=== PATIENT | male | born 1945 | race Caucasian/White ===

== ENCOUNTER 2024-06-22 08:54 | Day surgery (SDC) | payer MEDICARE, OTHER, SELFPAY ==
[2024-06-22] VITALS (12 sets, daily range): BP systolic 138–180; BP diastolic 72–89; PULSE 72–98; RESP 14–18; TEMP 36.4–37.1; O2SAT 84–96; BMI 31.6
--- NOTE | 2024-06-22 09:19 | PCM.PRE.AN2 ---
ASA Classification* ASA Classification ASA Classification: 2 Assessment & Plan Anesthesia* Anesthesia Assessment Anesthesia Assessment: Discussed sedation and/or anesthesia options, risks, benefits, and alternatives with patient/parents/legal guardian/POA. Questions invited. The patient/parents/legal guardian/POA seems to understand and agrees to proceed with anesthesia plan. Reviewed the physical assessment, medical history, allergy history and patient home medications list prior to surgery/procedure/anesthetic and documented any changes. Performed airway and anesthesia risk assessments. Anesthesia Type Anesthesia Type: General Anesthesia Focused Assessment* Airway Assessment Mouth opens: >3 cm Mallampati Score: II Focused Labs Anesthesia Preop lab: CBC CHEMISTRY COAG Pre-Assessment Diagnosis/Proposed Procedure Planned Operative Procedure(s): RHINOPHYMA EXCISION Anesthesia History Anesthesia History - washateria attendant: Anesthesia History - washateria attendant Hx Hospitalization No 06/09/24 13:17 Any Problems With Anesthesia No 06/09/24 13:17 Cholinesterase deficiency No 06/09/24 13:17 You/Your Family Experience No 06/09/24 13:17 fever (hyperthermia) with Relationship Recent Exposure to Contagious Disease Does patient have nerve No 06/09/24 13:17 stimulator Patient instructed to have device shut off --Does patient have Pacemaker or ICD? When Was Last Pacemaker Check QUESTION #4 FULL TEXT: You/Your Family Experience fever (hyperthermia) with Anesthesia Last Oral Intake Last Oral intake: Last Oral Intake NPO since Meds taken in AM with sips of water? Meds patient instructed to take am of surgery PONV PONV - washateria attendant: PONV - washateria attendant Female No 06/09/24 13:17 HX of Motion Sickness No 06/09/24 13:17 HX of N/V After Surgery No 06/09/24 13:17 Non-Smoker Yes 06/09/24 13:17 Duration of Surgery greater Yes 06/09/24 13:17 than 60 minutes Number of Risk Factors 2 06/09/24 13:17 PONV Score Moderate Risk 06/09/24 13:17 Height & Weight Height & Weight: Anesthesia: Height & Weight Height 5 ft 9 in 05/27/24 09:29 Respiratory Assessment Respiratory Assessment - washateria attendant: Respiratory Tract Infection Hx - washateria attendant Hx Respiratory Tract Infection No 06/09/24 13:17 STOP Sleep Apnea STOP Sleep Apnea - washateria attendant: STOP Sleep Apnea - washateria attendant Hx Hypertension Yes: CONTROLLED WITH MED 06/09/24 13:17 Hx Sleep Apnea No 06/09/24 13:17 CPAP BIPAP Do you snore loudly (louder No 06/09/24 13:17 than talking or can be heard Do you often feel tired/ No 06/09/24 13:17 fatigued/ sleepy during daytime? Has anyone observed you stop No 06/09/24 13:17 breathing during sleep? STOP Results Negative 06/09/24 13:17 QUESTION #5 FULL TEXT : Do you snore loudly (louder than talking or can be heard through closed doors)? Tobacco Use History Tobacco Use History - washateria attendant: Tobacco Use History - washateria attendant Tobacco Use Smoking Status Former smoker 06/09/24 13:17 Hx Tobacco Use No 06/09/24 13:17 Years Smoking Packs Smoked per Day Smoking Cessation Date was No - quit smoking greater 06/09/24 13:17 within the last 15 years than 15 years ago Hx Smoking Cessation Date 03/09/84 06/09/24 13:17 Hx Smoking Cessation Counseling Hematologic Medial History Hematologic Hx - washateria attendant: Hematologic Medical Hx - internal grinder set up operator Hx of Blood Transfusion No 06/09/24 13:17 Hx of Transfusion in last 3 No 06/09/24 13:17 Months Date of Last Transfusion (if within last 3 months) Ever experience any problems No 06/09/24 13:17 with transfusion(s)? Specify any problems Hx of Preganancy in last 3 N/A 06/09/24 13:17 Months Nurse Filling Out Transfusion DSCHRIBER 06/09/24 13:17 & Questions: Date: 06/09/24 06/09/24 13:17 Time: 13:19 06/09/24 13:17 Patient unable to answer at this time (ie. confused, unrespo /Reproduction History /Reproductive History - washateria attendant: /Reproductive Hx- washateria attendant Hx Now No 06/09/24 13:17 Gestational Age (in weeks): EDC: Hx Hx Para Hx Section SAB No 06/09/24 13:17 Active Medications Active Medications: Current Medications Generic Name Dose Route Start Last Admin Trade Name Freq PRN Reason Stop Dose Admin Cefazolin Sodium 2 gm/ N/A 20 mls @ 400 mls/hr 06/22/24 14:30 IV 06/22/24 14:32 INTRAOP ONE Sodium Chloride 1,000 mls @ 15 mls/hr 06/22/24 09:05 IV .Q48H ON LICENSE OF [facility] PFSH Medical History Wears hearing aid Wears glasses Cancer PTSD (post-traumatic stress disorder) Depression Alcohol use Insulin dependent diabetes mellitus Arthritis Fatty liver Restless legs Back pain Dietary restriction Gastric reflux Former smoker Leg cramps History of stress test Glaucoma History of deviated nasal septum History of edema Hypertension Foot drop, left foot Skin cancer High cholesterol Home Medications ?Medication ?Instructions ?Recorded ?Last Taken ?Type amlodipine 10 mg tablet 10 mg PO QDAY 05/27/24 06/22/24 History dorzolamide 22.3 mg-timolol 6.8 1 drp ophthalmic (eye) BID 05/27/24 06/22/24 History mg/mL eye drops lisinopril 20 mg tablet 20 mg PO BID 05/27/24 06/21/24 History omeprazole 20 mg capsule,delayed 20 mg PO QDAY 05/27/24 06/22/24 History release semaglutide 0.25 mg or 0.5 mg (2 0.5 mg subcut QWEEK 05/27/24 06/15/24 History mg/3 mL) subcutaneous pen injector sertraline 25 mg tablet 25 mg PO QDAY 05/27/24 06/21/24 History simvastatin 20 mg tablet 20 mg PO QHS 05/27/24 06/21/24 History travoprost 0.004 % eye drops 1 drp ophthalmic (eye) QHS 05/27/24 06/21/24 History aspirin 81 mg tablet,delayed 81 mg PO QHS 06/09/24 06/17/24 History release (Adult Aspirin Regimen) empagliflozin 25 mg tablet 25 mg PO DAILY 06/09/24 06/17/24 History (Jardiance) insulin aspart U-100 100 unit/mL 8 unit subcut BID 06/09/24 06/20/24 History (3 mL) subcutaneous pen (Novolog FlexPen U-100 Insulin aspart) insulin glargine 100 unit/mL (3 50 unit subcut QPM 06/09/24 06/21/24 History mL) subcutaneous pen, sensor 25 unit metformin 1,000 mg tablet 1,000 mg PO BID 06/09/24 06/21/24 History Allergy/AdvReac Type Severity Reaction Status Date / Time No Known Allergies Allergy Verified 06/22/24 09:09 Surgical History Hx of colonoscopy Hx of tonsillectomy History of fusion of lumbar spine Hx of inguinal hernia surgery History of carpal tunnel surgery of left wrist Social History Smoking Status: Former smoker alcohol intake: current Review of Systems (Anesthesia) ROS Narrative System reviewed and no additional complaints, except as documented.
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
[2024-06-22 09:39] LABS: Bedside Glucose 200 mg/dL (74-106)
[2024-06-22] MEDS: Cefazolin 2 GM in Syringe IV (10:15)
--- NOTE | 2024-06-22 10:19 | PCM.OPRPT ---
Operative Report (Standard) Operative Information Date of Procedure: 06/22/24 Pre-Operative Diagnosis: Rhinophyma Post-Operative Diagnosis: Same Surgery/Procedure Performed: 1) Rhinophyma excision (CPT: 50930) lozenge dough mixer: Yes Adzing And Boring Machine Helper: Herminia Ramsey Tasks completed by contract assistant: Retracting Type of Anesthesia: General/Supplemental (10 cc of a 50/50 mixture of 1% lidocaine with 1:200,000 epinephrine and 0.25% Marcaine, and then 5 cc of 0.25% Marcaine only at the completion of the case ) RN Documented Start/Stop Times: Operation Date: 06/22/24 11:00 Case Time Into Pre-Op 06/22/24 09:01 Out of Pre-Op 06/22/24 10:07 Anesthesia Start 06/22/24 10:09 Into Room 06/22/24 10:09 Procedure Start 06/22/24 10:45 Procedure End 06/22/24 11:36 Anesthesia End 06/22/24 11:50 Out of Room 06/22/24 11:50 Into Recovery 06/22/24 11:55 Procedure Start Time: 10:45 Procedure Stop Time: 11:36 Select all DRAINS/GRAFTS/IMPLANTS that apply: None Estimated Blood Loss: 25cc Specimen collected: Yes Description of specimen(s) removed: 1) left ala rhinophyma (rule out basal cell) 2) right ala rhinophyma 3) left nasal sidewall rhinophyma 4) right nasal side wall rhinophyma. Description of surgery: Indications: Tonny Mulligan is a delightful 79-year-old male with a history of hypertension and septoplasty who presents today for rhinophyma excision. He has severe rhinophyma with particular sebaceous hyperplasia on the left ala/nostril. He understands the risks, benefits, and alternatives to excision and is anticipating wound healing/need for wound care postoperative. Procedure details: Patient was correctly identified in preoperative holding and taken back to the operating room where he was administered general anesthesia and prepped and draped in sterile fashion with ophthalmic Betadine. Proper timeout was performed. He was anesthetized with the above-noted local solution for a nasal block. It was given time to take effect. We then began the procedure by taking a 15 blade scalpel and excising the sebaceous hyperplasia (rhinophyma) using the cold technique. The Ellman electrocautery was then used for hemostasis and for fine detail work. The bovie and epinephrine-soaked telphas were also used for hemostasis. There were various specimens that were sent including excision of left ala rhinophyma (rule out basal cell), right ala rhinophyma, left nasal sidewall rhinophyma, and right nasal side wall rhinophyma. The contour of the nose was improved at the completion of the case. Patient tolerated well. He was dressed with bacitracin, adaptic, and taken to the pacu in stable condition. Surgical Findings: Bleeding glandular tissue/skin at the base of the excision, no exposed cartilage Complications Complications: No Admit VTE Documentation VTE Mechan Device Prophylaxis: SCD's
[2024-06-22] MEDS: Povidone Iodine 30 ML Opthalmic Sol 1 DRP (10:40)
[2024-06-22] MEDS: Lidocaine 1% /Epi 1:100 (20ml) 20 ML Vial (10:45)
[2024-06-22] MEDS: Bupivacaine 0.25% 30 ML Vial (10:45)
--- NOTE | 2024-06-22 11:00 | ETH_PTH ---
PATIENT: DONNA MANCIA LOC: [facility] U#:[id number] AGE/SX: 79/M ROOM: RE06/22/[address]: Dr. Francisco Eugene MD : 1945 BED: DIS: 06/22/2024 SPEC #: [id number] RECD: 06/22/24 14:39 STATUS: NIKKI REHarrison #: [id number] LEIDY: 06/22/24 11:[address]: Francisco Eugene DEPT: SURGICAL PATHOLOGY RECD BY: Forrest Woo ENTERED: 06/22/24 14:40 SP TYPE: ETH TISS OTHR DR: Dr. Donald West MD [facility] Tissues: A - Ethmoid sinus, NOS B - Ethmoid sinus, NOS C - Ethmoid sinus, NOS D - Ethmoid sinus, NOS Procedures: Surgery Specimen Level IV HEADER OPERATION: Rhinophyma excision PRE-OP DIAGNOSIS: Rhinophyma TISSUE SUBMITTED: Left ala rhinophyma *rule out basal cell carcinoma*, Right ala rhinophyma, Right nasal sidewall rhinophyma, Left nasal sidewall rhinophyma MICROSCOPIC DIAGNOSIS A. Skin, left ala, excision: * Sebaceous hyperplasia * Follicular plugging * Early seborrheic keratosis B. Skin, right ala, excision: * Sebaceous hyperplasia * Follicular plugging * Epidermal inclusion cyst C. Skin, right nasal sidewall, excision: * Sebaceous hyperplasia * Follicular plugging D. Skin, left nasal sidewall, excision: * Sebaceous hyperplasia * Follicular plugging MICROSCOPIC DESCRIPTION Slides are reviewed. GROSS DESCRIPTION A. Received in formalin in a container labeled with the patient's name, date of , and left ala rhinophyma rule out basal cell is an unoriented and irregular skin excision measuring 3.5 x 3.0 cm with a depth up to 0.3 cm. The skin is kelly-pink, diffusely bumpy and nodular. The deep margin is inked green and serial sections reveal white-pink, somewhat granular surfaces. Approximately 60% of the specimen is submitted in A1-4 (A1-2 = perpendicular tips). B. Received in formalin in a container labeled with the patient's name, date of , and right ala rhinophyma is an unoriented and irregular skin excision measuring 2.0 x 1.2 cm with a depth up to 0.3 cm. The kelly-pink epidermis is diffusely bumpy. The deep margin is inked green and serial sections reveal somewhat granular surfaces. Submitted entirely as follows:B1. Ends, perpendicularB2. Midportion of specimen C. Received in formalin in a container labeled with the patient's name, date of , and right nasal sidewall rhinophyma is an unoriented and irregular skin excision measuring 1.5 x 1.4 cm with a depth up to 0.3 cm. The epidermis is kelly-pink, diffusely bumpy and nodular. The deep margin is inked green and serial sections reveal white-pink, somewhat granular surfaces. Submitted entirely as follows:C1. Ends, perpendicularC2. Midportion of specimen D. Received in formalin in a container labeled with the patient's name, date of , and left nasal sidewall rhinophyma is an unoriented and irregular skin excision measuring 2.2 x 1.5 cm with a depth up to 0.3 cm. The epidermis is kelly-pink, diffusely bumpy and nodular. The deep margin is inked green and serial sections reveal kelly-pink, somewhat granular surfaces. Submitted entirely as follows:D1. Ends, perpendicularD2. Midportion of specimen [facility] 06/24/2024 CPT:[id number]
[2024-06-22] MEDS: Epinephrine (1 mg/ml) 1 MG/ML VIAL (11:19)
[2024-06-22] MEDS: BACITRACIN/POLYMYXIN B 15 GM Tube 1 APPLIC (11:35)
[2024-06-22] MEDS: Sodium/Calcium/Mag/Potassium 15 ML Bottle (11:40)
--- NOTE | 2024-06-22 12:00 | PCM.POST.ANE ---
Anesthesia: Postop Eval I Current Vital Signs Temperature: 97.5 F Pulse Rate: 94 Blood Pressure: 138/82 Respiratory Rate: 16 Pulse Ox: 92 Oxygen Delivery Method: Nasal Cannula Oxygen Flow Rate (L/min): 3 Assessment Airway patent: Yes Spontaneous unlabored respirations: Yes Mental status: Awake and Calm nausea: No Vomiting: No Anesthesia Complication: No Fluid Hydration Crystalloid volume administer (ml): 1,300 Total IV fluid infused: 1,300 Progress Note Anesthesia document: Postop Eval 1 completed: Yes
--- NOTE | 2024-06-22 14:49 | POSTOPAN2_ITS ---
Anesthesia Postop Eval I Sum Postop Eval Completion status Anesthesia document: Postop Eval 1 completed: Yes Anesthesia Postop Eval I Summary Anesthesia Postop Eval I Summary: Anesthesia Postop Eval I: Assessment Summary Airway patent Yes 06/22/24 13:07 BILINGUAL LEGAL ASSISTANT.GDOTT Spontaneous unlabored Yes 06/22/24 13:07 BILINGUAL LEGAL ASSISTANT.GDOTT respirations Mental status Awake,Calm 06/22/24 13:07 BILINGUAL LEGAL ASSISTANT.GDOTT nausea No 06/22/24 13:07 BILINGUAL LEGAL ASSISTANT.GDOTT Vomiting No 06/22/24 13:07 BILINGUAL LEGAL ASSISTANT.GDOTT Anesthesia Postop Eval I: Fluid Summary Crystalloid volume administer 1,300 06/22/24 13:07 BILINGUAL LEGAL ASSISTANT.GDOTT (ml) Colloids volume administered ( ml) Blood Product volume administered (ml) Total IV fluid infused 1,300 06/22/24 13:07 BILINGUAL LEGAL ASSISTANT.GDOTT Anesthesia Postop Eval I: Summary Notes Anesthesia Complication No 06/22/24 13:07 BILINGUAL LEGAL ASSISTANT.GDOTT Anesthesia Complication Comment: Post-operative progress note Anesthesia: Postop Eval II Evaluation Mental status: Awake Pain Level: 0 nausea: No Vomiting: No
--- NOTE | 2024-06-22 14:49 | PCM.POSTANE2 ---
Anesthesia Postop Eval I Sum Postop Eval Completion status Anesthesia document: Postop Eval 1 completed: Yes Anesthesia Postop Eval I Summary Anesthesia Postop Eval I Summary: Anesthesia Postop Eval I: Assessment Summary Airway patent Yes 06/22/24 13:07 ELECTRIC POWER LINE REPAIRER.[email or web address] Spontaneous unlabored Yes 06/22/24 13:07 ELECTRIC POWER LINE REPAIRER.GDOTT respirations Mental status Awake,Calm 06/22/24 13:07 ELECTRIC POWER LINE REPAIRER.GDOTT nausea No 06/22/24 13:07 ELECTRIC POWER LINE REPAIRER.GDOTT Vomiting No 06/22/24 13:07 ELECTRIC POWER LINE REPAIRER.GDOTT Anesthesia Postop Eval I: Fluid Summary Crystalloid volume administer 1,300 06/22/24 13:07 ELECTRIC POWER LINE REPAIRER.GDOTT (ml) Colloids volume administered ( ml) Blood Product volume administered (ml) Total IV fluid infused 1,300 06/22/24 13:07 ELECTRIC POWER LINE REPAIRER.GDOTT Anesthesia Postop Eval I: Summary Notes Anesthesia Complication No 06/22/24 13:07 ELECTRIC POWER LINE REPAIRER.GDOTT Anesthesia Complication Comment: Post-operative progress note Anesthesia: Postop Eval II Evaluation Mental status: Awake Pain Level: 0 nausea: No Vomiting: No
== END 2024-06-22 13:59 | disposition home or self-care (01) ==
LOC: SDC 08:56 → AC 08:58
PROVIDERS: Referring Provider Surgery Plastic and Reconstructive Surgery; Visit Provider Surgery Plastic and Reconstructive Surgery
PROC: (CPT 30120; principal; 2024-06-22 10:45)
DX: L71.1 Rhinophyma (principal); E11.9 Type 2 diabetes mellitus without complications; Z79.4 Long term (current) use of insulin; Z87.891 Personal history of nicotine dependence; E78.00 Pure hypercholesterolemia, unspecified; I10 Essential (primary) hypertension; Z79.82 Long term (current) use of aspirin; K21.9 Gastro-esophageal reflux disease without esophagitis; Z79.84 Long term (current) use of oral hypoglycemic drugs; Z79.899 Other long term (current) drug therapy; L82.1 Other seborrheic keratosis; L72.0 Epidermal cyst; L73.8 Other specified follicular disorders
CPT/HCPCS: 30120; 82962; 88305; J2405

== ENCOUNTER → 2024-08-18 | Outpatient (CLI) | payer MEDICARE, OTHER, SELFPAY ==
[2024-08-18 16:19] LABS: Hemoglobin A1c 7.1 % (<=5.6)
== END | disposition home or self-care (01) ==
LOC: MTLAB 12:38
PROVIDERS: Referring Provider Orthopaedic Surgery Orthopaedic Surgery of the Spine; Visit Provider Orthopaedic Surgery Orthopaedic Surgery of the Spine
DX: E11.9 Type 2 diabetes mellitus without complications (principal)
CPT/HCPCS: 36415; 83036

== ENCOUNTER → 2024-09-02 | Outpatient (CLI) | payer MEDICARE, OTHER, SELFPAY ==
--- NOTE | 2024-09-02 11:43 | MRI_ITS ---
PROCEDURE: SPINE CERVICAL (ROUTINE) 09/02/2024 REASON FOR EXAM: WORSENING BALANCE ISSUES TECHNIQUE: SPINE CERVICAL (ROUTINE) Multiplanar and multisequence images were obtained without IV contrast administration. Metallic artifact is noted. COMPARISON: September 02, 2024 x-ray FINDINGS: Vertebrae: There is loss of the lordosis. Cervical vertebral body heights are preserved. Bone marrow signal is unremarkable. Disc signal shows desiccation. Alignment: There is grade 1 spondylolisthesis at C3-4, 0.2 cm. There is grade 1 retrolisthesis at C5-6, 0.4 cm. Spinal Cord: Cervical spinal cord is of normal size and signal intensities. Structures at the foramen magnum are unremarkable. C2-3: Unremarkable C3-4: There is moderate central and right paracentral, mild left paracentral disc and osteophyte protrusion. There is severe right lateral recess stenosis. There is severe right foraminal narrowing secondary to disc and osteophyte protrusion. There is mild central canal stenosis. C4-5: There is mild central and right and left paracentral disc and osteophyte protrusion. There is no significant lateral recess or foraminal narrowing. There is no central canal stenosis C5-6: There is moderate central and right and left paracentral disc and osteophyte protrusion. There is moderate right lateral recess stenosis. There is moderate right and mild left foraminal narrowing secondary to disc and osteophyte protrusion. There is mild central canal stenosis C6-7: There is moderate central and right and left paracentral disc and osteophyte protrusion. There is moderate bilateral lateral recess stenosis. There is moderate left foraminal narrowing secondary to disc protrusion and facet hypertrophy. There is no central canal stenosis C7-T1: Unremarkable MRI/Spine Cervical (Routine) IMPRESSION: There is loss of the lordosis. There is grade 1 spondylolisthesis at C3-4, 0.2 cm. There is grade 1 retrolisth esis at C5-6, 0.4 cm. There is mild central canal stenosis at C5-6, with lateral recess and foraminal narrowing. Reading Location: [id number]
--- NOTE | 2024-09-02 12:50 | RAD_ITS ---
EXAM: XR Cervical Spine, 2 or 3 Views CLINICAL INDICATION: MRI CLEARANCE TECHNIQUE: Frontal and lateral views of the cervical spine. COMPARISON: No relevant prior studies available. FINDINGS: VERTEBRAE: Moderate endplate degenerative changes and disc disease of C5-6. No definite fracture. Normal alignment. DISC SPACES: No acute findings. No significant narrowing. SOFT TISSUES: Unremarkable. RAD/Cerv Spine 2 or 3 Views IMPRESSION: Degenerative changes as above. Reading Location: [id number]
== END | disposition home or self-care (01) ==
LOC: MRI 11:43
PROVIDERS: Referring Provider Orthopaedic Surgery Orthopaedic Surgery of the Spine; Visit Provider Orthopaedic Surgery Orthopaedic Surgery of the Spine
DX: R26.89 Other abnormalities of gait and mobility (principal); G95.9 Disease of spinal cord, unspecified
CPT/HCPCS: 72040; 72141

== ENCOUNTER → 2024-11-17 | Outpatient (CLI) | payer MEDICARE, OTHER, SELFPAY ==
--- NOTE | 2024-11-17 16:40 | CT_ITS ---
PROCEDURE: SPINE LUMBAR WITHOUT CONTRAST 11/17/2024 REASON FOR EXAM: RULE OUT PSEUDOARTHROSIS TECHNIQUE: Procedure Code: CTSPL Modality: CT Procedure: SPINE LUMBAR WITHOUT CONTRAST Coronal and Sagittal reconstruction series were provided. One or more dose reduction techniques were used (e.g., Automated exposure control, adjustment of the mA and/or kV according to patient size, use of iterative reconstruction technique COMPARISON: MR july 2024. RADIATION DOSE SUMMARY: CTDlvol: 31.5 mGy DLP: 1317 mGycm FINDINGS: T11 through L1: Vertebral bodies: Mild anterior osteophyte formation. Disk Space: Degenerative disc disease at these levels. Facet Joints: [id number] bilateral facet joint hypertrophy at T12-L1 and associated moderate bilateral neural foraminal narrowing. Spinal Canal: Negative forcentral spinal narrowing. L1-2: Vertebral bodies: Negative. Disk Space: Mild degenerate disc disease. Facet Joints: Mild bilateral facet joint hypertrophy. Spinal Canal: Negative forsubarticular zone narrowing. Negative forcentral spinal narrowing. L2-3: Vertebral bodies: Negative. Disk Space: Disc desiccation moderate loss of disc height. Moderate posterior osteophyte disc complex. Facet Joints: Moderate bilateral facet joint hypertrophy. Severe bilateral neural foraminal narrowing Spinal Canal: Moderate bilateral subarticular zone narrowing. Moderate central spinal narrowing. L3-4: Vertebral bodies: Pedicle screws and rods left-sided laminotomy. Orthopedic hardware intact. No lucency or loosening. Disk Space: Disc desiccation mild loss of disc height. Osteophytic changes extend into the right subarticular zone and contribute to right subarticular narrowing. Facet Joints: [id number] bilateral facet joint hypertrophy. Severe right mild left neural foraminal narrowing. Spinal Canal: Moderate right subarticular zone narrowing. Mild central spinal narrowing. L4-5: Vertebral bodies: Laminectomies. Pedicle screws and rods. No loosening or lucency. Disk Space: Disc desiccation mild loss disc height. Mild posterior osteophyte disc complex. Facet Joints: Fused. Orthopedic hardware intact. No lucency or loosening. Spinal Canal: Negative forsubarticular zone narrowing. Negative forcentral spinal narrowing. L5-S1: Vertebral bodies: Pedicle screws and rods with interbody fusion. Lucency surrounds the S1 pedicle screws. Disk Space: Disc desiccation mild loss disc height. Facet Joints: Moderate bilateral facet joint hypertrophy. Spinal Canal: Negative forsubarticular zone narrowing. Negative forcentral spinal narrowing. Alignment: Intact CT/Spine Lumbar without Contrast IMPRESSION: L3-S1 lumbar spine fusion. Lucency surrounds the S1 pedicle screws. Reading Location: [id number]
== END | disposition home or self-care (01) ==
LOC: CT 16:23
PROVIDERS: Referring Provider Orthopaedic Surgery Orthopaedic Surgery of the Spine; Visit Provider Orthopaedic Surgery Orthopaedic Surgery of the Spine
DX: S32.009K Unspecified fracture of unspecified lumbar vertebra, subsequent encounter for fracture with nonunion (principal)
CPT/HCPCS: 72131